=== PATIENT | male | born 1935 | race African-American/Black ===

== ENCOUNTER 2018-05-27 12:17 | Emergency (ER) | payer OTHER ==
[~2018-05-27] VITALS: Ht 160 cm; Wt 78.0 kg
[~2018-05-27 12:17] MED LIST: ACETAMINOPHEN-1 EAC1 PO; AMARYL2 MG PO; ASPIRIN325; CARVEDILOL25 MG; CARVEDILOL25 MG PO; COUMADIN 5 MG TA5 M1 PO; DYAZIDE; FLOMAX0.4 MG PO; FOSAMAX 70 MG T70 MG PO; GLUCOPHAGE500 MG PO; GLUMETZA500; HYDRALAZINE 5050 MG; HYDROCODON-ACE1 EAC7 PO; LASIX 40 MG TAB40 M2 PO; LISINOPRIL20 MG PO; LOTRIMIN30 GM TP; MUCINEX TA600 MG/TA2 PO; NORCO 5-325 TA1 EACH PO; POTASSIUM CHLO10 ME1 PO; POTASSIUM20 PO; PRAVACHOL40 MG; PRAVACHOL80 MG PO; PROTONIX40 M1 PO; SIMVASTATIN80 MG PO; SYMBICORT160 MCG/4. INH; TYLENOL325 MG PO
[2018-05-27] MEDS ORDERED: NORCO 5-325 TA1 EACH PO (13:34)
[2018-05-27 13:47] VITALS: BP 113/70
== END 2018-05-27 13:47 | disposition home or self-care (01) ==
LOC: ER 12:17
DX: M54.2 Cervicalgia (principal); M54.9 Dorsalgia, unspecified; I10 Essential (primary) hypertension; I25.2 Old myocardial infarction; E11.9 Type 2 diabetes mellitus without complications; Z95.810 Presence of automatic (implantable) cardiac defibrillator; Z88.1 Allergy status to other antibiotic agents; V49.49XA Driver injured in collision with other motor vehicles in traffic accident, initial encounter; Y93.89 Activity, other specified; Y92.410 Unspecified street and highway as the place of occurrence of the external cause; Y99.8 Other external cause status

== ENCOUNTER 2018-07-11 23:22 | Emergency (ER) | payer OTHER ==
[~2018-07-11] VITALS: Ht 160 cm; Wt 77.1 kg
[2018-07-12 00:05] LABS: ABSOLUTE NEUTROPHILS 3.4 thou/uL (1.4-8.2); BASOPHILS 0.4 % (0.0-2.0); EOSINOPHILS 2.6 % (0.0-3.0); HEMOGLOBIN 12.9 gm/dL (14.0-18.0); LYMPHOCYTES 22.1 % (24.0-44.0); MCV 94.2 fL (80.0-100.0); MONOCYTES 10.1 % (1.0-8.0); PLATELET COUNT 121 thou/uL (150-400); POLYS 64.8 % (36.0-66.0); RBC 4.03 mil/uL (4.50-6.00); WBC 5.3 thou/uL (4.0-11.0)
[2018-07-12 00:09] LABS: CALCIUM 8.9 mg/dL (8.5-10.1); CREATININE 1.9 mg/dL (0.7-1.3); POTASSIUM 4.3 mmol/L (3.5-5.1)
[2018-07-12 00:17] LABS: APTT 34.3 Seconds (24.5-32.8); INR 2.2; PROTIME 23.1 Seconds (9.3-11.4)
[2018-07-12 00:19] LABS: ALBUMIN 3.5 g/dL (3.4-5.0); MAGNESIUM 1.8 mg/dL (1.8-2.4); TOTAL BILIRUBIN 0.7 mg/dL (<0.1-1.0); TOTAL PROTEIN 6.7 g/dL (6.4-8.2); TROPONIN-I 0.08 ng/mL (<0.06)
[2018-07-12 02:06] VITALS: BP 120/69
--- NOTE | 2018-07-12 09:18 | EKG ---
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1935 Requested By: Benito Stewart Order Number: [id number] MD: Danilo Ortega Measurements Intervals [place] Rate: 94 P: 69 SC: 177 QRS: 129 QRSD: 111 T: 86 QT: 358 QTc: 448 Interpretive Statements Sinus rhythm Anterolateral infarct, age indeterminate Compared to ECG 10/10/2013 22:30:20 no significant change was found Electronically Signed On 07-12-2018 9:18:00 CDT by Danilo Ortega [email or web address] ��������������������������������������������� <ELECTRONICALLY SIGNED> ���������������������������������������� By: Danilo Ortega MD, [facility] ��������������������������������������������� 07/12/18 0918 2343 2343 Danilo Ortega MD, FACC /EPI
== END 2018-07-12 02:08 | disposition home or self-care (01) ==
LOC: ER 23:22
PROVIDERS: Emergency Medicine
DX: I13.0 Hypertensive heart and chronic kidney disease with heart failure and stage 1 through stage 4 chronic kidney disease, or unspecified chronic kidney disease (principal); I50.9 Heart failure, unspecified; E11.22 Type 2 diabetes mellitus with diabetic chronic kidney disease; N18.6 End stage renal disease; I25.10 Atherosclerotic heart disease of native coronary artery without angina pectoris; R79.89 Other specified abnormal findings of blood chemistry; Z79.01 Long term (current) use of anticoagulants; Z88.1 Allergy status to other antibiotic agents

== ENCOUNTER 2019-08-28 16:35 | Inpatient (IN) | payer OTHER ==
[~2019-08-28] VITALS: Ht 160 cm; Wt 76.7 kg
--- NOTE | ~2019-08-28 | HC ---
[facility] [place] [address] CONSULTATION Name: CHARLEY JAUREGUI Room #: 242-P ADM IN M.R.#: [id number] Admission: 08/28/19 Attend Phys: Patrick Obregon MD Discharge: Date of : 37 Report #: [id number] THIS REPORT FOR: cc: Yusuf Samaniego Ronald D. DO Khosla, Parveen K. MD ~ CC: Atilio Samaniego DATE OF SERVICE: 08/29/2019 HISTORY OF PRESENT ILLNESS: This is an 84-year-old male patient on whom a Neurology consultation was requested today for evaluation of his CVA. I reviewed the records and talked to the patient. From the records, it looks like the patient presented to Emergency Room yesterday because the patient was slurring his speech. He was also feeling dizzy and somewhat weak and he was brought to Emergency Room. He was seen by Dr. Stewart, the Emergency Room physician and he consulted with Dr. Shearer, neurologist, who was correctional officer sergeant. His evaluation was very difficult. He has a defibrillator. Therefore, MRI could not be done. CT angio was considered, but his GFR was only 35. The Emergency Room records indicate because of the above factors, the patient's further workup could not be done, but he was given TPA in the Emergency Room. He has no complication from TPA and he thinks his speech has improved and in fact he thinks it is back to the baseline. This patient's records indicate he has atrial fibrillation, but he does not recognize the term. He said he is on Coumadin, but his INR was only 1.1. I do not know when was the last time his INR was checked. REVIEW OF SYSTEMS: Positive for multiple factors. They include hypertension, IL, diabetes. He has a defibrillator. He has a history of congestive heart failure, has a history of hyperlipidemia, ischemic cardiomyopathy, multivessel surgical vascularization. This was his relevant 14-point review of system. He says he does not have any history of stroke in the past. PAST MEDICAL HISTORY: Negative for stroke. FAMILY HISTORY: Unremarkable. SOCIAL HISTORY: He does not smoke or drink any alcohol. PHYSICAL EXAMINATION: The patient's examinations indicates he is alert. He is responsive. He can follow simple commands. His speech looks intact to me. Cranial nerve examination does indicate left hemianopsia. This was noticed in the Emergency Room also. He may be slightly weak on the left side as compared to the right side. His position sense appeared to be intact. Reflexes are [address] [address] CONSULTATION Name: CHARLEY JAUREGUI Room #: 242-P ADM IN M.R.#: [id number] Admission: 08/28/19 Attend Phys: Patrick Obregon MD Discharge: Date of : 37 Report #: [id number] symmetrical. There is no meningeal sign. There is no carotid bruit. There is no thyroid mass. He is reasonably well-developed individual. His blood pressure is 118/75, temperature is 98.2, pulse is 61. Cardiac examinations indicate he has a defibrillator. Respiratory examination shows no respiratory difficulty. His platelet count is somewhat low at 114. IMPRESSION: The patient's clinical presentation is consistent with cerebrovascular accident. It appeared to be mostly in the posterior cerebral artery distribution. It is most likely emboli from the heart because his INR was very low and that is especially true if the patient has atrial fibrillation in the past. I discussed that situation with the patient, but the patient appeared to be in somewhat denial. Multiple things need to be done in this patient and they include: 1. We should try to maintain his blood pressure somewhat high. He is on antihypertensives and that may have to be held if his blood pressure does not come up. 2. Consideration should be given to switching the anticoagulation to something like Eliquis. 3. He has hemianopsia. 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 4. We will see how he does with physical and occupational therapy. He does appear to be somewhat weak on the left side. 5. We will repeat the CT scan in this patient to document CVA because other things like MRI and CT angio cannot be done in this patient because of low GFR and defibrillator, which may be incompatible with MRI. He does need cardiology evaluation both for repeating the echocardiogram and also addressing changing his anticoagulation. I will discuss the patient with the hospitalist today and I have put a call to him and we will discuss that. Thank you very much for this referral and if you have any questions, please feel free to contact me. By: 1100 1126 Josemanuel Kuhn MD /nt
[~2019-08-28 16:35] MED LIST changes: +CIALIS20 MG; +COZAAR 50 MG TA50 MG PO; +DORYX MPC120 MG PO; +FARXIGA5 MG PO; +SPIRONOLACTONE25 MG
[2019-08-28 16:38] VITALS: BP 120/66
[2019-08-28 17:22] LABS: ANION GAP 7 mmol/L (7-16); BUN 28 mg/dL (7-18); CALCIUM 8.8 mg/dL (8.5-10.1); CHLORIDE 101 mmol/L (98-107); CO2 26 mmol/L (21-32); CREATININE 2.2 mg/dL (0.7-1.3); GLUCOSE 119 mg/dL (74-106); POTASSIUM 3.9 mmol/L (3.5-5.1); SODIUM 134 mmol/L (136-145)
[2019-08-28 17:27] LABS: APTT 25.7 Seconds (24.5-32.8); INR 1.1; PROTIME 11.3 Seconds (9.3-11.4)
[2019-08-28 17:32] LABS: ALBUMIN 3.7 g/dL (3.4-5.0); MAGNESIUM 2.3 mg/dL (1.8-2.4); SGOT 20 U/L (15-37); SGPT 19 U/L (30-65); TOTAL BILIRUBIN 0.6 mg/dL (0.2-1.0); TOTAL PROTEIN 7.6 g/dL (6.4-8.2); TROPONIN-I <0.06 ng/mL (<0.06)
[2019-08-28 17:53] LABS: HEMATOCRIT 39.8 % (42.0-52.0); HEMOGLOBIN 13.6 gm/dL (14.0-18.0); MCH 32.8 pg (26.0-34.0); MCHC 34.1 % (28.0-37.0); PLATELET COUNT 128 thou/uL (150-400); RBC 4.14 mil/uL (4.50-6.00); RDW 14.2 % (10.5-14.5); WBC 4.3 thou/uL (4.0-11.0)
[2019-08-28] MEDS ORDERED: COUMADIN 2.5MG2.5 M1 PO (18:07)
[2019-08-28] MEDS ORDERED: PRAVASTATIN SOD80 MG PO (18:08)
[2019-08-28] MEDS ORDERED: FLOMAX0.4 MG PO (18:08)
[2019-08-28] MEDS ORDERED: METFORMIN HCL500 M3 PO (18:08)
[2019-08-28] MEDS ORDERED: FUROSEMIDE 40 M40 MG PO (18:11)
[2019-08-28] MEDS ORDERED: STARLIX60 MG PO (18:12)
[2019-08-28] MEDS ORDERED: ISOSORBIDE DINI30 MG PO (18:12)
[2019-08-28] MEDS ORDERED: KLOR-CON M2020 MEQ PO (18:12)
[2019-08-28 22:59] VITALS: BP 117/69
[2019-08-28 23:37] VITALS: BP 127/78
[2019-08-29] VITALS (20 sets, daily range): BP systolic 94–139; BP diastolic 40–75
--- NOTE | 2019-08-29 01:30 | NUR ---
PATIENT IS A NEW ADMISSION TO THE UNIT. HE ARRIVED VIA CART FROM THE ER AND WAS ABLE TO AMBULATE TO THE BED WITH ASSISTANCE INCIDENT FREE. PATIENT IS FULLY ALERT AND ORIENTED AND ABLE TO PARTICIPATE IN ADMISSION AND CALL APPROPRIATELY FOR NEEDS. NIH PER PROTOCOL WITH PATIENT SCORING AROUND ONE TO TWO DUE TO SLIGHT VISUAL DISTURBANCE. NURSE TO INITIATE PLAN OF CARE AND COMPLETE ADMISSION PROCESS.
[2019-08-29 07:27] LABS: HEMATOCRIT 36.6 % (42.0-52.0); HEMOGLOBIN 12.5 gm/dL (14.0-18.0); MCH 32.9 pg (26.0-34.0); MCHC 34.2 g/dL (28.0-37.0); MCV 96.2 fL (80.0-100.0); RBC 3.8 mil/uL (4.50-6.00); RDW 14.2 % (10.5-14.5); WBC 3.5 thou/uL (4.0-11.0)
[2019-08-29 07:45] LABS: CALCIUM 7.9 mg/dL (8.5-10.1); CREATININE 1.9 mg/dL (0.7-1.3); MAGNESIUM 2.1 mg/dL (1.8-2.4); POTASSIUM 4.4 mmol/L (3.5-5.1)
--- NOTE | 2019-08-29 07:59 | NUR ---
ASSUMED CARE AT 0700, ASSESSMENT AND VITAL SIGNS COMPLETED PER ICU PROTOCOL. DAUGHTER, ERIN, CALLED RN TO GET UPDATE, SECURITY CODE PROVIDED. RN PROVIDED UPDATE, PLAN OF CARE DISCUSSED.
--- NOTE | 2019-08-29 08:47 | EKG ---
[facility] [place] [address] ELECTROCARDIOGRAM REPORT Name: CHARLEY JAUREGUI Room #: 242-P ADM IN M.R.#: [id number] Admission: 08/28/19 Attend Phys: Patrick Obregon MD Discharge: Date of : 37 Report #: [id number] THIS REPORT FOR: cc: Yusuf Samaniego Ronald D. DO Lundgren, Craig H. 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
--- NOTE | 2019-08-29 09:50 | NUR ---
chart review, consult for dcp and if pt able to care for self at home. cm called pt in room, cm spoke with him via phone call, intro to cm and dcp. " i am in the hospital right know, and dr hawk here, have to talk later"/jaxson. noted per chart, pt independent prior to hospital, h/o stroke, has pacemaker. his full service supervisor is at [facility] dr jamison. will cont following as needed for dc needs.
--- NOTE | 2019-08-29 15:20 | 2DMMODE ---
[facility] [place] [address] 2 D/M-MODE ECHOCARDIOGRAM Name: CHARLEY JAUREGUI Room #: 242-P ADM IN M.R.#: [id number] Admission: 08/28/19 Attend Phys: Patrick Obregon MD Discharge: Date of : 37 Report #: [id number] THIS REPORT FOR: cc: Yusuf Samaniego Ronald D. DO Lammoglia, Francisco J. MD ~ APPROVED REPORT Study performed: 08/29/2019 13:39:42 EXAM: Comprehensive 2D, Doppler, and color-flow Echocardiogram Patient Location: ICU Room #: 242 Status: routine BSA: 1.77 HR: 60 bpm BP: 103/58 mmHg Rhythm: NSR Other Information Study Quality: Good Indications ICD: CVA/TIA Diabetes Atrial Fibrillation Cardiomyopathy Hypertension/HDD Echo Enhancing Agent Indication: Rule out Shunt Agent(s) / Amount(s) Used: Agitated Saline 7 cc 2D Dimensions IVSd: 12.30 (7-11mm) LVOT Diam: 21.21 (18-24mm) LVDd: 52.10 mm PWd: 13.27 (7-11mm) Ascending Ao: 26.77 (22-36mm) LVDs: 41.84 (25-40mm) Aortic Root: 33.38 mm IVC: 17.00 mm Aortic Valve AoV Peak Ishmael.: 1.37 m/s AO Peak Gr.: 7.56 mmHg LVOT Max P.[address] [facility] [address] [place] [address] 2 D/M-MODE ECHOCARDIOGRAM Name: CHARLEY JAUREGUI Room #: 242-P ADM IN M.R.#: [id number] Admission: 08/28/19 Attend Phys: Patrick Obregon MD Discharge: Date of : 37 Report #: [id number] LVOT Max V: 0.84 m/s ROSALIND Vmax: 2.15 cm2 Mitral Valve E/A Ratio: 0.6 MV Decel. Time: 317.68 ms MV E Max Ishmael.: 0.53 m/s MV A Ishmael.: 0.96 m/s MV PHT: 92.13 ms IVRT: 129.18 ms Pulmonary Valve PV Peak Ishmael.: 0.87 m/s PV Peak Gr.: 3.10 mmHg Pulmonary Vein P Vein S: 0.45 m/s P Vein A: 0.21 m/s P Vein D: 0.30 m/s P Vein A Dur.: 101.5 msec P Vein S/D Ratio: 1.50 Tricuspid Valve TR Peak Ishmael.: 2.22 m/s TR Peak Gr.: 19.76 mmHg PA Pressure: 30.00 mmHg Left Ventricle The left ventricle is normal size. There is global hypokinesis of the left ventricle. Mild concentric left ventricular hypertrophy. Left ventricular ejection fraction is moderate to severely decreased. LVEF is 25-30%. Grade I - abnormal relaxation pattern. Right Ventricle The right ventricle is normal size. The right ventricular systolic function is normal. Device lead is present in the right ventricle. Atria Left atrium is dilated. Interatrial septum is intact without evidence of ASD or PFO. Right atrium is dilated. Device lead is present in the right atrium. Aortic Valve The aortic valve is normal in structure. The Aortic valve is sclerotic. Mild aortic regurgitation. There is no aortic valvular stenosis. Mitral Valve The mitral valve is normal in structure. Mild mitral regurgitation. [facility] [address] [place] [address] 2 D/M-MODE ECHOCARDIOGRAM Name: CHARLEY JAUREGUI Room #: 242-P ADM IN M.R.#: [id number] Admission: 08/28/19 Attend Phys: Patrick Obregon MD Discharge: Date of : 37 Report #: [id number] No evidence of mitral valve stenosis. Tricuspid Valve The tricuspid valve is normal in structure. There is mild tricuspid regurgitation. Estimated PAP 30 mmHg. There is mild pulmonary hypertension. Pulmonic Valve The pulmonary valve is normal in structure. There is no pulmonic valvular regurgitation. Great Vessels The aortic root is normal in size. IVC is normal in size and collapses <50% with inspiration. Pericardium There is no pericardial effusion. <Conclusion> The left ventricle is normal size. LVEF is 25-30%. There is global hypokinesis of the left ventricle. The right ventricle is normal size. Device lead is present in the right ventricle. Left atrium is dilated. Right atrium is dilated. Device lead is present in the right atrium. Interatrial septum is intact without evidence of ASD or PFO. The aortic valve is normal in structure. The Aortic valve is sclerotic. Mild aortic regurgitation. The mitral valve is normal in structure. Mild mitral regurgitation. The tricuspid valve is normal in structure. There is mild tricuspid regurgitation. Estimated PAP 30 mmHg. There is mild pulmonary hypertension. The pulmonary valve is normal in structure. There is no pericardial effusion. <ELECTRONICALLY SIGNED> By: Alexey Adams MD 08/29/19 1519 1519 1519 Alexey Adams MD /INF
--- NOTE | 2019-08-29 22:21 | NUR ---
PT BACK TO BED FROM CHAIR. GAIT STEADY. DENIES ANY PAIN, NUMBNESS OR TINGLING. SPEECH CLEAR, FACE SYMMETRICAL. AND DID NOT NOTED LT PERIPHERAL NEGLECT. NIH 0. PT DENIES VISION ISSUES. PROGRESSING TOWARD GOALS. CONT PLAN OF CARE
[2019-08-29 23:23] LABS: URINE BILIRUBIN NEGATIVE (Negative); URINE BLOOD NEGATIVE (Negative); URINE CLARITY CLEAR; URINE COLOR YELLOW; URINE GLUCOSE-RANDOM* NEGATIVE (Negative); URINE KETONES TRACE (Negative); URINE LEUKOCYTES-REFLEX NEGATIVE (Negative); URINE NITRITE-REFLEX NEGATIVE (Negative); URINE PROTEIN (DIPSTICK) NEGATIVE (Negative); URINE UROBILINOGEN 0.2 E.U./dl (0.2-1.0)
[2019-08-29 23:35] LABS: BARBITURATES Negative (Negative); BENZODIAZEPINES Negative (Negative); COCAINE Negative (Negative); METHADONE Negative (Negative); OPIATES Negative (Negative); PCP Negative (Negative)
--- NOTE | 2019-08-29 23:35 | NUR ---
TRANSFER PT TO ROOM 207 FROM ICU. PT STATED HE WILL NOTIFY FAMILY MEMBERS OF TRANSFER IN AM.
[2019-08-29 23:44] LABS: AMP/METHAMP Negative (Negative)
[2019-08-30 04:08] VITALS: BP 104/67
--- NOTE | 2019-08-30 05:14 | NUR ---
PT ARRIVED FROM ICU THIS SHIFT. A[facility] NEEDS OF GOING HOME TOMORROW. DENIES PAIN. 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 URINAL AT BEDSIDE. FALL PREC IN PLACE AND CALL LIGHT IN REACH WILL CONT TO MONITOR.
[2019-08-30 08:00] VITALS: BP 126/71
[2019-08-30 11:50] VITALS: BP 124/54
[2019-08-30 16:00] VITALS: BP 115/57
--- NOTE | 2019-08-30 16:42 | NUR ---
ASSESSMENT DOCUMENTED, NIHS 0, AND VSS. HE DEINIES ANY PAIN OR DISCOMFORT AND ASKING TO GO HOME. PROGRESSING TOWARDS GOALS, AND WILL CONTINUE TO MONITOR PATIENT.
[2019-08-30 20:12] VITALS: BP 108/64
[2019-08-31 04:47] VITALS: BP 106/52
--- NOTE | 2019-08-31 05:07 | NUR ---
ASSESSMENTS CHARTED, MEDS CHARTED GIVEN. PATIENT RESTING IN BED DURING SHIFT. SR ON TELEMETRY, LUNGS ARE CLEAR, ACCUCHECK AT HS WAS 154, 3 UNITS OF LISPRO GIVEN. PATIENT UP TO BATHROOM WITH STANDBY ASSIST. DENIED PAIN. FALL PRECAUTIONS IN PLACE DURING SHIFT. PLAN OF CARE IS TO HAVE CONSULT WITH ONCOLOGY THEN POSSIBLY GO HOME.
[2019-08-31 05:11] LABS: % SATURATION 26 % (20-39); IRON 46 ug/dL (65-175); TIBC 179 ug/dL (250-450)
[2019-08-31 05:36] LABS: FOLIC ACID 8.3 ng/mL (8.6-58.9)
[2019-08-31 08:00] VITALS: BP 135/59
[2019-08-31] MEDS ORDERED: B-12500 MCG PO (12:52)
[2019-08-31] MEDS ORDERED: FOLIC ACID0.4 MG PO (12:52)
[2019-08-31] MEDS ORDERED: LASIX 20 MG TAB20 MG PO (12:52)
[2019-08-31] MEDS ORDERED: XARELTO15 MG PO (12:52)
[2019-08-31 13:17] VITALS: BP 135/59
[2019-09-01 05:07] LABS: HEMOGLOBIN 12.1 g/dL (13.0-17.7)
[2019-09-01 13:08] LABS: ANA INTERPRETATION Negative (Negative)
[2019-09-01 22:06] LABS: SYPHILIS AB Non Reactive (Non Reactive)
--- NOTE | 2019-09-04 19:12 | HC ---
[facility] [place] [address] CONSULTATION Name: CHARLEY JAUREGUI Room #: 207-P [facility] IN M.R.#: [id number] Admission: 08/28/19 Attend Phys: Patrick Obregon MD Discharge: 08/31/19 Date of : 37 Report #: [id number] THIS REPORT FOR: cc: Yusuf Samaniego Ronald D. DO McKittrick, Richard James MD ~ CC: Atilio Samaniego DO REQUESTING PHYSICIAN: Patrick Obregon MD HISTORY OF PRESENT ILLNESS: The patient is a very pleasant 84-year-old male who came to the Emergency Room on day of admit with slurring of speech and dizziness. He is a patient of Dr. Lemon. The patient is recovering very well. He had missed several days of anticoagulation, which might have contributed to this. We will defer workup to them. The question for me is whether he has cytopenia that might interfere with plans for anticoagulation. The patient's recent hemoglobin was 12.5, which is stable. White count is 3.5 with a recent ANC of 2000. Note that in 2013, his white count was 4.1 and in 2009 it was 3.6, platelets were 114; in 2013 they were 139 and in 2010 they were 132. Differential is nonacute. Iron and B12 lab panels appear to be normal. Folate was slightly low at 8.3, would suggest supplementation. REVIEW OF SYSTEMS: The patient denies any fevers or chills. He thinks he is functioning much better. He has not been aware of any bleeding difficulties when his pacemaker was placed in May with other activities. He is not aware of any family history of bleeding disorders. PAST MEDICAL HISTORY: Notable for the stroke and several in the past. The pacemaker in situ. Chronic kidney disease, hypertension, diabetes type 2, hyperlipidemia, BPH. FAMILY HISTORY: No one with any bleeding or blood disorders that he is aware of. 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 [facility] [address] [place] [address] CONSULTATION Name: CHARLEY JAUREGUI Room #: 207-P [facility] IN [place].#: [id number] Admission: 08/28/19 Attend Phys: Patrick Obregon MD Discharge: 08/31/19 Date of : 37 Report #: [id number] MEDICATIONS: At this time in the hospital currently include rivaroxaban 15 mg daily, began today; furosemide 20 mg daily; isosorbide mononitrate 30 mg daily; losartan 50 mg daily; tamsulosin 0.4 mg daily; insulin on a sliding scale; atorvastatin calcium 40 mg daily; Tylenol p.r.n.; Zofran p.r.n.; enteric-coated aspirin was done one time. PHYSICAL EXAMINATION: VITAL SIGNS: The patient's height is 5 feet 3 inches, which is 160.02 cm. Weight is 169 pounds or 76.7 kilograms. Blood pressure is 106/52, O2 sat 100%, respirations 18, pulse 60, afebrile at 98.3. MOOD: The patient is alert and conversant and pleasant. NEUROLOGIC: Speech and thought pattern appear to be normal. The patient is eating off a hospital tray and appears to have a good movement. LUNGS: Appear to be clear without significant rhonchi or rales. There is symmetric and unlabored expansion and respiration. HEART: Regular rate. LYMPHATICS: No enlarged lymph nodes in the supraclavicular, cervical, axillary region. ABDOMEN: Slightly obese. No masses. Chest has pacemaker in place. EXTREMITIES: Without significant edema. LABORATORY DATA: Labs reviewed as mentioned above and also note the patient's creatinine is about 1.9. Liver functions have been normal. Differential on the white count has been normal. Peripheral smear is pending. ASSESSMENT AND PLAN: 1. 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 At this time, I do not think other interventions such as a bone marrow biopsy is warranted. Also, his platelets in this level and with recent pacemaker placed without difficulty, I think Xarelto is a very reasonable choice for anticoagulation given his recent stroke. Continue monitoring creatinine periodically. No bone marrow at this time. 2. Recent stroke. Agree with anticoagulation. 3. Chronic kidney disease with creatinine of 1.9. Continue monitoring and medication adjustment. 4. Diabetes type 2, diet and agents. 5. Hypertension, meds. 6. Hyperlipidemia, statins. 7. Benign prostatic hypertrophy, tamsulosin. We will be available if further questions arise. <ELECTRONICALLY SIGNED> By: Harry Turner MD 09/04/192 0840 0913 Harry Turner MD /nt
== END 2019-08-31 13:41 | disposition home health service (06) | DRG 62 ==
LOC: ER 16:35 → ICU 18:38 → EROBS 18:38 → ICU 23:00 → 2N 08-29 23:10
PROVIDERS: Emergency Medicine; Internal Medicine Hematology & Oncology; Psychiatry & Neurology Neuromuscular Medicine; ADMIT Internal Medicine; ATTEND Internal Medicine
DX: I63.9 Cerebral infarction, unspecified (principal); I50.22 Chronic systolic (congestive) heart failure; I13.0 Hypertensive heart and chronic kidney disease with heart failure and stage 1 through stage 4 chronic kidney disease, or unspecified chronic kidney disease; D61.818 Other pancytopenia; I48.20 Chronic atrial fibrillation, unspecified; N18.3 Chronic kidney disease, stage 3 (moderate); E11.22 Type 2 diabetes mellitus with diabetic chronic kidney disease; I25.5 Ischemic cardiomyopathy; N40.0 Benign prostatic hyperplasia without lower urinary tract symptoms; E78.5 Hyperlipidemia, unspecified; I48.0 Paroxysmal atrial fibrillation; G47.00 Insomnia, unspecified; K59.00 Constipation, unspecified; E55.9 Vitamin D deficiency, unspecified; I25.10 Atherosclerotic heart disease of native coronary artery without angina pectoris; Z95.1 Presence of aortocoronary bypass graft; Z88.8 Allergy status to other drugs, medicaments and biological substances; I25.2 Old myocardial infarction; Z83.3 Family history of diabetes mellitus; Z82.49 Family history of ischemic heart disease and other diseases of the circulatory system; Z95.810 Presence of automatic (implantable) cardiac defibrillator; Z87.891 Personal history of nicotine dependence; Z79.899 Other long term (current) drug therapy
CPT/HCPCS: 10078; 10081

== ENCOUNTER 2020-03-26 20:46 | Inpatient (IN) | payer OTHER ==
[~2020-03-26] VITALS: Ht 154.9 cm; Wt 71.5 kg
[2020-03-26] VITALS (8 sets, daily range): BP systolic 108–150; BP diastolic 34–93
--- NOTE | ~2020-03-26 | HC ---
[facility] [place] [address] CONSULTATION Name: CHARLEY JAUREGUI Room #: 250-P ADM IN M.R.#: [id number] Admission: 03/26/20 Attend Phys: Cecilia Vides MD Discharge: Date of : 37 Report #: [id number] THIS REPORT FOR: cc: Yusuf Samaniego Ronald D. DO Smithson, David G. MD ~ DATE OF SERVICE: 03/27/2020 HISTORY OF PRESENT ILLNESS: The patient is an 84-year-old -Palestinian male admitted with mental status changes, driving erratically, veering to the left. CT scan showed an old right parietal infarct. He is not a candidate for TPA. He was noted to have left sided neglect and left sided hemisensory deficits. He had a seizure, new onset. In the Emergency Room. He was given Keppra. He was seen by Neurology. He is not a candidate for an MRI as he has a pacemaker, which is apparently not compatible. He has chronic kidney disease. We planned to go through with an MRA. Nephrology was contacted as well as per Neurology. The patient is also undergoing an EEG. He is currently in the intensive care unit. We are seeing him in rehabilitation medicine consultation. PAST MEDICAL HISTORY: Includes hypertension, elevated lipids, diabetes mellitus type 2, CHF, cardiomyopathy, coronary artery disease with prior coronary artery bypass grafting, cardiac pacemaker with AICD, history of atrial fibrillation. MEDICATIONS: Please see the full medication listing. ALLERGIES: No known drug allergies are noted. SOCIAL HISTORY: He lives with 2 daughters and a niece, 6 steps. One daughter works. He did not utilize gait aids. He was driving as noted above. This is a house. REVIEW OF SYSTEMS: No current complaints of chest pain, shortness of breath or abdominal discomfort. PHYSICAL EXAMINATION: GENERAL: An 84-year-old -Palestinian male in no obvious distress. VITAL SIGNS: Last recorded temperature 97.7, pulse 94, respirations 21, blood pressure 133/83. NEUROLOGIC: He is alert, pleasant. HEENT: Reveals depressed left nasolabial fold. He has definite left visual field neglect to confrontation. He has left sided weakness, upper and lower extremity are graded at a 3+/5 with decreased coordination of that left upper extremity. He has decreased heavy sensation to light touch left upper and left lower extremity. DTRs were 1+. No clonus at the ankle. He is needing min assist with supine to sit. While sitting at the edge of the bed, he tends to [facility] [address] [place] [address] CONSULTATION Name: CHARLEY JAUREGUI Room #: 250-P [facility] IN [facility].#: [id number] Admission: 03/26/20 Attend Phys: Cecilia Vides MD Discharge: Date of : 37 Report #: [id number] lean to the right. ASSESSMENT: An 84-year-old -Palestinian male with the following problem list: 1. Cerebrovascular accident. Appears clinically to be right middle cerebral artery distribution, although ____ to do an MRI scan. 2. 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 3. New onset seizure. To undergo EEG. He is on Keppra. 4. History of pacemaker with automatic implantable cardioverter-defibrillator. 5. Coronary artery bypass grafting. 6. History of atrial fibrillation. 7. Diabetes mellitus type 2. 8. Congestive heart failure. 9. Cardiomyopathy. 10. Coronary artery disease. 11. Elevated lipids. 12. Hypertension. PLAN: Therapies are underway. He is currently being closely monitored in the Intensive Care Unit. He certainly may be a candidate for an acute inpatient rehabilitation stay as he further medically stabilizes. We will be glad to follow along with you. By: 1010 1230 Marco Hensley MD /nt
[~2020-03-26 20:46] MED LIST changes: +B-12500 MCG PO; +COUMADIN 2.5MG2.5 M1 PO; +FOLIC ACID0.4 MG PO; +FUROSEMIDE 40 M40 MG PO; +ISOSORBIDE DINI30 MG PO; +KLOR-CON M2020 MEQ PO; +LASIX 20 MG TAB20 MG PO; +METFORMIN HCL500 M3 PO; +PRAVASTATIN SOD80 MG PO; +STARLIX60 MG PO; +XARELTO15 MG PO
[2020-03-26 21:19] LABS: ABSOLUTE NEUTROPHILS 2.4 thou/uL (1.4-8.2); BASOPHILS 0.7 % (0.0-2.0); EOSINOPHILS 2.8 % (0.0-3.0); HEMATOCRIT 40.9 % (42.0-52.0); HEMOGLOBIN 13.5 gm/dL (14.0-18.0); LYMPHOCYTES 30.2 % (24.0-44.0); MCH 31.6 pg (26.0-34.0); MCHC 32.9 g/dL (28.0-37.0); MCV 96.1 fL (80.0-100.0); MONOCYTES 11.7 % (1.0-8.0); PLATELET COUNT 135 thou/uL (150-400); POLYS 54.6 % (36.0-66.0); RBC 4.26 mil/uL (4.50-6.00); RDW 14.9 % (10.5-14.5); WBC 4.4 thou/uL (4.0-11.0)
[2020-03-26 21:26] LABS: ANION GAP 10 mmol/L (7-16); BUN 19 mg/dL (7-18); CALCIUM 9.1 mg/dL (8.5-10.1); CHLORIDE 101 mmol/L (98-107); CO2 26 mmol/L (21-32); CREATININE 1.7 mg/dL (0.7-1.3); GLUCOSE 118 mg/dL (74-106); POTASSIUM 3.8 mmol/L (3.5-5.1); SODIUM 137 mmol/L (136-145)
[2020-03-26 21:35] LABS: APTT 39.1 Seconds (24.5-32.8); INR 1.5; PROTIME 16.7 Seconds (9.3-11.4)
[2020-03-26 21:36] LABS: ALBUMIN 3.8 g/dL (3.4-5.0); SGOT 27 U/L (15-37); SGPT 38 U/L (16-63); TOTAL BILIRUBIN 1.3 mg/dL (0.2-1.0); TOTAL PROTEIN 7.4 g/dL (6.4-8.2); TROPONIN-I <0.06 ng/mL (<0.06)
[2020-03-27] VITALS (31 sets, daily range): BP systolic 103–1174; BP diastolic 31–97
--- NOTE | 2020-03-27 00:25 | NUR ---
PT'S PACEMAKER IS NOT MRI SAFE.
--- NOTE | 2020-03-27 05:19 | NUR ---
PT CAME UP FROM ER AT 0430AM TODAY. ER NURSE STATED GIVING PT SOME ATIVAN PRIOR TO WHEELING HIM DOWN TO ICU. PT APPEARED LETHARGIC, EYES CLOSED AND ONLY WITHDRAWS TO PAINFUL STIMULI AND FACIAL GRIMACE. RN ATTEMPTED TO AROUSE PT TO HAVE A CONVERSATION AND FILL OUT ADMISSION DOCUMENTATION AND TO ALSO CARRY OUT INITIAL NIH ASSESSMENT BUT PT UNAROUABLE. PT CURRENTLLY SLEEPING NOW, SEIZURE PRECAUTIONS IN PLACE. VSS. WILL CONTINUE TO MONITOR AND WILL PASS ON TO DAY RN TO COMPLETE ADMISSION CHECKLIST ONCE PT IS FULLY AWAKE AND ABLE TO CONVERSE.
[2020-03-27 06:44] LABS: CHOLESTEROL 107 mg/dL (<200); HDL CHOLESTEROL 48 mg/dL (>40); LDL CHOLESTEROL 49 mg/dL (<100); TC:HDL 2.2 Ratio (Not establshd); TRIGLYCERIDE 53 mg/dL (<150); VLDL 11 mg/dL (<40)
[2020-03-27 06:48] LABS: SERUM ASSESSMENT Clear
--- NOTE | 2020-03-27 07:05 | EKG ---
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
--- NOTE | 2020-03-27 07:28 | NUR ---
ASSUMMED CARE OF THIS PATIENT FROM THE NIGHT NURSE SAMI WARE. PATIENT REMAINS OBTUNDANT AND UNABLE TO PARTICIPATE WITH THE STROKE SCALE AT THIS TIME, ATIVAN GIVEN PRIOR TO ADMISSION.
--- NOTE | 2020-03-27 08:15 | NUR ---
SPOKE WITH DAUGHTER FLORIN, AND UPDATED HER ON HER FATHER'S STATUS. BEDSIDE CARDIAC ECHO JUST COMPLETED. PATIENT IS MORE AWAKE AND ABLE TO PARTICIPATE IN STTOKE SCALE EVALUATION. NEGLECTION OF LEFT SIDE OF PICTURE PAGE.
--- NOTE | 2020-03-27 09:02 | 2DMMODE ---
[facility] [place] [address] [place] [address] 2 D/M-MODE ECHOCARDIOGRAM Name: CHARLEY JAUREGUI Room #: 250-P ADM IN M.R.#: [id number] Admission: 03/26/20 Attend Phys: Cecilia Vides MD Discharge: Date of : 39 Report #: [id number] THIS REPORT FOR: cc: Yusuf Samaniego Ronald D. DO Santiago, Patrick MD [facility] ~ APPROVED REPORT Study performed: 03/27/2020 08:07:24 EXAM: Comprehensive 2D, Doppler, and color-flow Echocardiogram Patient Location: ICU Room #: 250 Status: routine BSA: 1.76 HR: 81 bpm BP: 133/83 mmHg Rhythm: NSR Other Information Study Quality: Adequate Technically limited study due to no patient cooperation. Indications Stroke. Hx: CVA, OK, CABG, CHF, ISCM, AICD, Afib, HTN, HLP, DM. 2D Dimensions RVDd: 39.32 mm IVSd: 12.00 (7-11mm) LVOT Diam: 21.00 (18-24mm) LVDd: 60.00 mm PWd: 12.03 (7-11mm) Ascending Ao: 33.00 (22-36mm) LVDs: 49.00 (25-40mm) Left Atrium: 35.00 (27-40mm) Aortic Root: 35.00 mm Volumes Left Atrial Volume (Systole) Single Plane 4CH: 42.77 mL Single Plane 2CH: 54.92 mL LA ESV Index: 29.00 mL/m2 Aortic Valve AoV Peak Ishmael.: 1.33 m/s [facility] [address] [place] [address] 2 D/M-MODE ECHOCARDIOGRAM Name: CHARLEY JAUREGUI Room #: 250-P [facility] IN .R.#: [id number] Admission: 03/26/20 Attend Phys: Holly Cordoba Discharge: Date of : 39 Report #: [id number] AO Peak Gr.: 7.08 mmHg LVOT Max P.05 mmHg LVOT Max V: 0.72 m/s ROSALIND Vmax: 1.81 cm2 Mitral Valve E/A Ratio: 0.8 MV Decel. Time: 93.43 ms MV E Max Ishmael.: 0.64 m/s MV A Ishmael.: 0.84 m/s MV PHT: 27.09 ms IVRT: 131.49 ms Pulmonary Valve PV Peak Ishmael.: 0.81 m/s PV Peak Gr.: 2.63 mmHg Pulmonary Vein P Vein S: 0.60 m/s P Vein D: 0.51 m/s P Vein S/D Ratio: 1.18 Tricuspid Valve TR Peak Ishmael.: 2.69 m/s RAP Estimate: 5.00 mmHg TR Peak Gr.: 29.03 mmHg PA Pressure: 34.00 mmHg Left Ventricle Left ventricle is mildly dilated. Mild concentric left ventricular hypertrophy. Left ventricular systolic function is mild to moderately decreased. LVEF is 25%. Mild diastolic dysfunction is present (impaired relaxation pattern). Right Ventricle The right ventricle is normal size. Right ventricle is hypokinetic. Device lead is present in the right ventricle. Atria The left atrium size is normal. The right atrium size is normal. Aortic Valve Aortic valve is trileaflet. Leaflets are mildly calcified. Mild aortic regurgitation. There is no aortic valvular stenosis. Mitral Valve The mitral valve is normal in structure. Mild mitral regurgitation. [facility] [address] [address] 2 D/M-MODE ECHOCARDIOGRAM Name: CHARLEY JAUREGUI Room #: 250-P ADM IN M.R.#: [id number] Admission: 03/26/20 Attend Phys: Holly Cordoba Discharge: Date of : 39 Report #: [id number] Tricuspid Valve The tricuspid valve is normal in structure. Mild to moderate tricuspid regurgitation. Estimated PAP is 35mmHg. Pulmonic Valve The pulmonary valve is normal in structure. There is no pulmonic valvular regurgitation. Great Vessels The aortic root is normal in size. The ascending aorta is normal in size. IVC is normal in size and collapses >50% with inspiration. Pericardium There is no pericardial effusion. <Conclusion> Left ventricle mildly dilated, mild LVH Global hypokinesis ejection fraction 25% Normal right ventricular size with mild hypokinesis Normal atrial size Color-flow Doppler study was performed of the aortic/mitral/tricuspid/pulmonary valve Mild aortic/mitral valve insufficiency Moderate tricuspid valve insufficiency Pulmonary artery systolic pressure estimated 35 mmHg Linear density in the RV compatible with pacer wire No pericardial effusion <ELECTRONICALLY SIGNED> By: Tremayne Yee MD, FACC 03/27/20901 1 1 Tremayne Yee MD, FACC /INF
--- NOTE | 2020-03-27 10:15 | NUR ---
PT IN TO SEE PATIENT AND NOW BEDSIDE EEG IN PROGRESS. FLORIN CALLED IN AGAIN AND UPDATED ON THE PATIENT'S STATUS.
--- NOTE | 2020-03-27 12:30 | NUR ---
SPOKE WITH DAUGHTER ERIN AND UPDATED HER ON THE PATIENT'S STATUS. BEDSIDE SWALLOW STATUS INITIATED.
--- NOTE | 2020-03-27 14:13 | NUR ---
SPOKE WITH DAUGHTER ERIN AND PATIENT IS MORE AWAKE AND PARTICIPATING IN CARE. DR PATEL IN TO EXAMINE PATIENT.
--- NOTE | 2020-03-27 16:32 | NUR ---
84 year old male presented to the ED with complaints of confusion on 03-26-20. Daughter reports that patient's driving was taking "wide turns" and drifting to his left. Daughter informed ED MD also states that she does not think that he is comprehending things like he normally does. 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 Neuro discussing plan with daughters and has also called in nephrology. Daughter Ekaterina at [phone] and other daughter Joanna [phone]. CM spoke with gema Tobar at [phone] who said that Joanna is the main contact. I then contacted daughter Joanna [phone] and re-introduced the role of CM as patient last seen by CM on 08-29-2019 where he was living at home with 2 daughters when discharged on 08-31-2019. CM will follow discharge needs as medical plan of care continues.
[2020-03-27] MEDS ORDERED: PIOGLITAZONE15 MG (19:37)
--- NOTE | 2020-03-27 19:39 | NUR ---
PATIENT PROGRESSING SL TOWARDS OUTCOME GOALS EVIDENT BY ABLE TO EAT WITHOUT COUGHING. CONTINUES TO SCOOT SELF DOWN IN THE BED. NIH STROKE SCALE 4-5. LEFT TOOL CARRIER IS SL WEAKER THAN RIGHT.
[2020-03-27 19:54] LABS: CALCIUM 8.5 mg/dL (8.5-10.1); CREATININE 1.8 mg/dL (0.7-1.3); POTASSIUM 3.6 mmol/L (3.5-5.1)
[2020-03-28] VITALS (21 sets, daily range): BP systolic 100–147; BP diastolic 57–95
[2020-03-28 00:05] LABS: GLYCOHEMOGLOBIN (HGB A1C) 6.7 % (4.8-5.6)
[2020-03-28 04:31] LABS: CALCIUM 8.4 mg/dL (8.5-10.1); CREATININE 1.6 mg/dL (0.7-1.3); PHOSPHORUS 3.7 mg/dL (2.5-4.9); POTASSIUM 3.8 mmol/L (3.5-5.1)
--- NOTE | 2020-03-28 13:00 | NUR ---
DR. ADRIAN CALLED, AGITATION. HALDOL GIVEN. NO RESULTS. PT SHOUTING CRAWLING OUT OF CHAIR. STATES THAT NURSE KEPT HIM UP ALL N IGHT, JUST KEEPS REPEATING HIMSELF OVER AND OVER. APPEARS TO HAVE NO SHORT TERM MEMORY. NOT EASILY REDIRECTED. DR ADRIAN CALLED BACK AT 1545 SPOKE WITH PT DAUGHTER. PT DAUGHTER CONCERNED PT NOT TRACKING WELL AND LOOPING HIS CONVERSATION. HALDOL GIVEN AGAIN WITH SLIGHT BETTER RESULT. PT SLEPT FOR ABOUT [address] ADRIAN HERE. PT SEAMS CALMER NOW BUT SHORTLY AFTER MD LEFT PT PULLED OUT SL AND ALL LEADS. PT NAKED ON THE CHAIR, ATTEMPING TO GET UP. STATES WHERE ARE MY CLOTHS. IM LEAVING ETC. GETTING MORE AND MORE HOSTILE WITH THIS RN. ATIVAN 1MG SIVP GIVEN. PT FELL ASPEEP FOR A FEW MINUTES. AN HOUR LATER HE WAS BACK TO THE SAME BEHAVIOR GETTING MORE AND MORE BELLIGERANT. TRYING TO GET OUT OF CHAIR. PULLING LEADS ETC. ATIVAN GIVEN AGAIN WITH GOOD RESULTS. CALLED DR. ADRIAN 1800 TO STATE SECOND DOSE OF ATIVAN HAD BEEN GIVEN. VSS. PT SEDATED. NO NEW ORDERS.
--- NOTE | 2020-03-28 18:36 | HC ---
[facility] [place] [address] [place] [address] CONSULTATION Name: CHARLEY JAUREGUI Room #: 250-P ADM IN M.R.#: [id number] Admission: 03/26/20 Attend Phys: Armando Langford MD Discharge: Date of : 37 Report #: [id number] THIS REPORT FOR: cc: Yusuf Samaniego Ronald D. DO Khosla, Parveen K. MD ~ DATE OF SERVICE: 03/26/2020 HISTORY OF PRESENT ILLNESS: This is an 84-year-old male patient whom I got first call around 11:20 today from the nurses in the Emergency Room. They indicated that the patient was here with stroke-like symptoms and altered mental status. I was going to be consulted in the morning, but then they called me today because his symptoms were worse or more findings were noticed. I came and saw the patient and since then I had numerous conversations with the patient's 2 daughters to get the history and also to the patient himself. I talked to the Emergency Room nurse multiple times and I talked to the nurse practitioner, Daniella Bunch, multiple times. I also reviewed the prior extensive notes on this patient including the note from the last year when I saw this patient. The way I understand is that this patient has a defibrillator and a pacemaker. The patient was started on anticoagulation after his stroke in the middle of last year. I talked to him multiple times, he does not give a good history, that whether he was taking his Xarelto on a regular basis or not. He just would not give any history in that regard. That makes it pretty difficult. Daughters do not know. They said they are trying to find out, they cannot be certain, but they think he may have been taking, that is the best history I can get. They said he was fine until about 7 and then he started becoming confused. He is cognitively intact, but he cannot do simple things like taking his mask off. He is not able to drive. His left side has become weaker, but he has difficulty doing things with the left side. This onset was around 7 according to them. Prior to that, he was fine. Then, visual problems were noticed by Emergency Room physician. It looks like he may have had a gaze preference and there was question of some hemianopsia which was noticed at one time. He also has a new left-sided swelling which is also being worked up and which is also concerning. Family thinks left-sided weakness and sensory symptoms are new and the prior symptoms have resolved. Because of multiple things need to be done, history taking and exam was limited, but carried out multiple times. He has multiple problems. His creatinine is high at 1.7, but actually it is better than when he was here last time. That time, his creatinine was actually 2.2. He also has very low ejection fraction, so he is predisposed to congestive heart failure and it is limited how much fluid he can get. All of it makes the management very difficult as I will summarize below. His history was limited because of the [facility] [address] [place] [address] CONSULTATION Name: CHARLEY JAUREGUI Room #: 250-P ADM IN M.R.#: [id number] Admission: 03/26/20 Attend Phys: Armando Langford MD Discharge: Date of : 37 Report #: [id number] time constraint. PAST MEDICAL HISTORY: Positive for documented CVA and he is supposed to be on Xarelto, although there is some feeling that he was taking Xarelto, but his compliance cannot be ascertained. SOCIAL HISTORY: He has two family members here who identified themselves as daughters and I talked to them in detail. PHYSICAL EXAMINATION: His examination indicate he is alert. He is responsive. He can tell me what month it is. He can tell me what hospital he is in, but his visual spatial problem is pretty pronounced on the left side. I tried to do the visual field examination on him. I am not certain, but he does appear to have a visual field deficit on the left side. He moves his eyes slowly, but most of the time he can move it in a different direction, but previously he was noticed to have gaze preference. He is weak on the left side. When I do position sense on him, he does okay on the right, but does not do okay on the left side. When I asked him to do [id number] on the left side, he does it very slowly and on the right side, he does it normally, and the fact on the left side, he could not even do that in spite of giving him multiple instructions. Same thing with rapid finger tapping or alternate finger tapping. He does look impaired on the left side. He does have a defibrillator. His blood pressure is 136/85, respirations 20, pulse is 96. LABORATORY DATA: Indicates that his PT is trace high at 16.7, INR is 1.5, APTT is 39.1. His GFR is 47 which is somewhat low, but better than it was last August. I had a long talk with the patient and patient's daughters. This patient is competent to make his decision. I discussed with him that it is possible that he is developing seizures from his prior stroke. It is also possible that he has another emboli from his heart. I considered the seizure first because the nurses noticed some seizure and seizure-like activity or at least shaking in Emergency Room. Management was very difficult. Initially, I tried to see if an MRI can be arranged. He has a defibrillator and nurse practitioner told me that she called the [employer] and they told her that his pacemaker and defibrillator are incompatible with MRI. MRI needs to be approved by [employer], but I told them I can get that approved, but I was told that MRI cannot be done. Even if the pacemaker and defibrillator are compatible with MRI, still need to be set up and that typically takes 24-48 hours. An attempt was made, but that was unsuccessful to do the MRI. I very frankly discussed the situation with the patient as well as the patient's daughters. I told them the options include that we just assume that this is [address] [address] CONSULTATION Name: CHARLEY JAUREGUI Room #: 250-P ADM IN M.R.#: [id number] Admission: 03/26/20 Attend Phys: Armando Langford MD Discharge: Date of : 37 Report #: [id number] seizure and treat him for seizure or we try to do the further workup to make sure he does not have another emboli to the brain and taken for thrombectomy. The risks with that is his kidneys can shut down and he can be on dialysis permanently. Both the patient and the patient's daughters emphatically told me that they want to do the CT angio and they are very well aware of the risk that his kidneys may shut down. If that happens, he will need dialysis either short-term or long-term or indefinitely. The patient wants to proceed with CT angio and perfusion and the daughters want to do that. That was arranged and that will be done tonight. If an embolus is found, he will be transferred to another facility for embolectomy assuming perfusion shows penumbra. If not, he will be admitted. I already gave him a loading dose of Keppra. He needs to be monitored closely and needs to be sent to ICU, especially for the possibility of seizure. We will get an EEG done. I talked to Daniella Burrissmith and she is going to order fluids for this patient depending upon how much he can tolerate, but she said she is going to give fluids to him depending upon how much he can tolerate because of his congestive heart failure. I discussed those complications with the patient's family also. All the options were discussed with the patient as well as the family. Unfortunately, there is no good option in this patient. All the options are fraught with possible multiple complications and the family understand it and that is the option they want. To be on safe side and to get another opinion, I called the cheese sprayer on-call in this patient and he said it is okay to proceed with CT angio and perfusion in this patient with creatinine of 1.7. Before me calling the cheese sprayer, the nurses in the Emergency Room has called the radiologist and he also said that this dye can be given with this creatinine and GFR. In spite of that, I still explained to the patient and the family that the complication of renal failure can occur and they understood that very well and they wanted to proceed with CT angio and perfusion and further management will depend upon the outcome of those testing. I spent around 2 hours of time taking care of this patient today since I got the call and majority of the time was spent counseling and coordinating the patient's care as summarized above. Thank you very much for this referral and if you have any question, please feel free to contact me. <ELECTRONICALLY SIGNED> By: Josemanuel Kuhn MD 03/28/20 1836 0125 Josemanuel Kuhn MD /nt
--- NOTE | 2020-03-28 20:49 | NUR ---
PT SEDATED NOW BUT NOT MOVING TOWARDS GOALS. FAMILY UPDATED. SITTING IN CHAIR CALM RIGHT BUT MOVING ALL EXTREMITIES.
--- NOTE | 2020-03-28 21:48 | NUR ---
1130-PT VERY BELLIGERANT EARLIER,YELLING AT OT/PT & NURSES.PT ALL OVER THE BED,LYING SIDEWAYS & PRONING SELF.ENTANGLES IN ALL THE CABLES THEN ANGRY HE IS CAUGHT UP.NOT ABLE TO REDIRECT.DAUGHTER IN.--VW ~1630-IN & OUT OF ROOM FREQ TO ASSIST W PT. PT VERY COMBATIVE & HOSTILE AT TIMES.DOES NOT REDIRECT.DOES SEEM TO DO BETTER IN CHAIR.HAS SLEPT VERY LITTLE.--VW
[2020-03-29] VITALS (22 sets, daily range): BP systolic 101–132; BP diastolic 55–88
--- NOTE | 2020-03-29 11:44 | NUR ---
chart review. noted he been yelling, angry and confused. cm received phone call from daughter sherrie [phone], she wanted to know what is going on with her dad medically? " one nurse say something then another says something differ just want to know what is going on with his care?"/sherrie. active listen, offered to pass on information to ICU charge nurse and MD to call her rt medical questions" thank you"/daughter. Noted she was talking in a loud voice during phone call. no anticipated dc over the weekend.
[2020-03-29 14:56] LABS: URINE BILIRUBIN NEGATIVE (Negative); URINE BLOOD 1+ (Negative); URINE CLARITY CLEAR; URINE COLOR YELLOW; URINE GLUCOSE-RANDOM* NEGATIVE (Negative); URINE KETONES NEGATIVE (Negative); URINE LEUKOCYTES-REFLEX NEGATIVE (Negative); URINE NITRITE-REFLEX NEGATIVE (Negative); URINE PROTEIN (DIPSTICK) NEGATIVE (Negative); URINE SPECIFIC GRAVITY 1.025 (1.005-1.035)
[2020-03-29 15:07] LABS: BACTERIA-REFLEX None Seen /HPF (None Seen); CASTS None Seen /LPF (None Seen); MUCUS 0-3 Light strn/LPF (None Seen); SQUAMOUS None Seen /LPF (0-3); URINE RBC 0-2 Rare /HPF (0-2); URINE WBC-REFLEX 0-5 Rare /HPF (0-5)
[2020-03-29 15:08] LABS: CRYSTALS None Seen /LPF (None Seen)
--- NOTE | 2020-03-29 15:47 | NUR ---
PATIENT IS A CANDIDATE FOR ACUTE REHAB STAY. AUTHORIZATION REQUEST MADE TO PATIENT'S INSURANCE AND CLINICAL INFORMATION WAS FAXED. WILL AWAIT DECISION. ANTICIPATE RESPONSE ON 04/01/20. THANK YOU FOR THIS REFERRAL.
--- NOTE | 2020-03-29 19:26 | NUR ---
RN ASSUMED PT'S CARE AT 0700AM, PT IS A&OX2 ( PERSON AND PLACE), PT IS CONFUSED AT TIME, PT 'S VS ARE STABLE AT DAY SHIFT, PT GETS UP TO CHAIR AND BSC WITH ASSIST , PT HAS WORKED WITH PT/OT, PT DENIES PAIN AND SOB, PT 'S L SIDE STILL Has weakness.
--- NOTE | 2020-03-29 21:12 | NUR ---
PATIENT MORE ALERT AND KEENLY RESPONSIVE TONIGHT,ORIENTED TO PERSON, PLACE, AND TIME. VSS, AFEBRILE. DENIES PAIN, B/S +VEX4 QUADS, ABDOMEN SOFT AND NTTP. L/S CLEAR/DIM. ABLE TO USE CALL LIGHT SYSTEM APPROPRIATELY AND USING URINAL WITH ASSIST. PATIENT ANSWERING QUESTIONS AND PERFORMING TASKS CORRECTLY. NIH STROKE SCALE 2. REPORT CALLED TO [address] [place] [address], PATIENT TRANSFERING TO .453, FAMILY NOTIFIED AND ALL QUESTIONS ANSWERED.
--- NOTE | 2020-03-30 02:31 | NUR ---
PT TRANSFER FROM ICU AT 2200 AND WAS ADMITTED WITH AMS AND ATAXIA.PT IS A/O X3.PT IS FORGETFUL AND CONFUSE.PT BECAME AGITATED AND WANTED TO LEAVE AND GO HOME.PT WAS REDIRECTED AND WAS ABLE TO CALM HIM DOWN VERBALLY.DAUGHTER CALLED AND WAS UPDATED ON PT CONDITION.PT IS UP WITH X1 ASSIST AND UNSTEADY ON GAIT.PT IS CONTINENET AND INCONTINENT AND USE A URINAL.PT IS ON TELE AND HAS A PACEMAKER.PT IS ACCUCHECK ACHS WILL CONTINUE TO MONITOR PER POC
[2020-03-30 07:54] VITALS: BP 135/83
--- NOTE | 2020-03-30 11:55 | NUR ---
Patient was pleasant at beginning of shift. Wanted to go home. Was informed of decision to be transfered to [facility] for rehabilitation. Patient denied giving permission for rehab. Daughter was contacted, wanting patient to remain for rehabilitation. Patient became increasingly frustrated with conversation. Dr. Langford was notified, spoke with daughter to address issue directly with patient. Patient does not remember speaking with Dr. Langford. Will continue to monitor.
--- NOTE | 2020-03-30 14:29 | NUR ---
PT RECEIVED INSURANCE AUTHORIZATION. PT NEEDS COVID-19 TEST PRIOR TO ADMIT. FURTHER COMPLICATING ADMISSION IS PT'S RECENT REFUSAL TO DISCHARGE TO [facility] AND STATES HE WANTS TO GO HOME. SPOKE WITH DR ADRIAN AND PLAN IS FOR Yanira GALLAGHER AND ANDRES TO SEE PATIEN WEDNESDAY TO EVALUATE ABILITY TO MAKE DECISIONS OR IF DPOA IS NEEDED. WE WILL CONTINUE TO FOLLOW TO ASSIST WITH APPROPRIATE DISCHARGE PLANS.
[2020-03-30 17:33] VITALS: BP 138/76
[2020-03-30 19:36] VITALS: BP 122/76
--- NOTE | 2020-03-31 05:41 | NUR ---
Assumed pt care at 1900. A/OX3-4,able to make needs known. Denies pain on assessment, VSS.Up with AX1 with GB.Continent of B&B,voiding per urinal at NOC. Covid test back this am and negative. Dtr Ekaterina called at HS with questions regarding pt dc to [facility], indicated pt is now acceptable to [facility]. Pt has a pending psych/psychological eval to determine decision making abilities,stated she'll visit today. Will relay information to oncoming nurse. Fall precautions in plac,calls approp for help.
[2020-03-31 08:30] VITALS: BP 128/83
[2020-03-31] MEDS ORDERED: KEPPRA 500 MG500 M1 PO (10:08)
[2020-03-31] MEDS ORDERED: COREG6.25 MG PO (10:08)
[2020-03-31] MEDS ORDERED: LIPITOR40 MG PO (10:08)
[2020-03-31] MEDS ORDERED: VITAMIN B-12500 MCG PO (10:09)
[2020-03-31] MEDS ORDERED: FOLIC ACID1 MG PO (10:09)
[2020-03-31 11:44] LABS: HEMATOCRIT 39.2 % (42.0-52.0); HEMOGLOBIN 12.8 gm/dL (14.0-18.0); MCH 31.8 pg (26.0-34.0); MCHC 32.8 g/dL (28.0-37.0); MCV 96.9 fL (80.0-100.0); RBC 4.04 mil/uL (4.50-6.00); RDW 14.7 % (10.5-14.5); WBC 3.7 thou/uL (4.0-11.0)
[2020-03-31 11:58] LABS: ALBUMIN 3.4 g/dL (3.4-5.0); CALCIUM 8.8 mg/dL (8.5-10.1); CREATININE 1.7 mg/dL (0.7-1.3); POTASSIUM 4.1 mmol/L (3.5-5.1); TOTAL BILIRUBIN 0.9 mg/dL (0.2-1.0); TOTAL PROTEIN 6.9 g/dL (6.4-8.2)
--- NOTE | 2020-03-31 13:35 | NUR ---
Patient stated he was ready to go to rehab, but still would prefer to go home. Patient VSS with patient c/o pain. Patient did ambulate with walker to and from restroom with good endurance. Patient later wanted to walk around the room without the use of the walker. Accompanied using gait belt. Patient was stable with some dragging of the left foot. Order was placed for discharge to rehab on [facility]. Report given over patient to Lori prior to discharge via wheelchair with daughter and CQ DEVELOPER. All personaly belongins given to patient.
--- NOTE | 2020-04-01 10:45 | EEG ---
[facility] [place] [address] ELECTROENCEPHALOGRAM Name: CHARLEY JAUREGUI Room #: 453-P [facility] IN M.R.#: [id number] Admission: 03/26/20 Attend Phys: Armando Langford MD Discharge: 03/31/20 Date of : 39 Report #: [id number] THIS REPORT FOR: //name// This patient's EEG was done because the patient is either having recurrent TIA or seizure. EEG was done by placing the electrodes by standard 10-20 system of electrode placement. Both referential and sequential montages were used for recording. Background activity in this patient's EEG is about 8 Hz and 30 microvolt. The patient went to sleep and that is associated with bilateral slowing and vertex sharp waves. Photic stimulation is unremarkable. Throughout the record, no active epileptiform activity was noticed. IMPRESSION: This patient's EEG is intermixed with moderate amount of theta range slowing. However, no active epileptiform activity was noticed. Thank you very much for this referral. <ELECTRONICALLY SIGNED> By: Josemanuel Kuhn MD 04/01/20 1045 [id number] Josemanuel Kuhn MD /nt
[2020-04-01 20:06] LABS: SYPHILIS AB Non Reactive (Non Reactive)
[2020-04-04 18:06] LABS: ANA INTERPRETATION Negative (Negative)
[2020-04-08] MEDS ORDERED: KLOR-CON M2020 MEQ PO (15:06)
== END 2020-03-31 13:40 | DRG 64 ==
LOC: ER 20:46 → EROBS 22:01 → ICU 22:01 → 4W 03-29 21:58
PROVIDERS: Emergency Medicine; Internal Medicine Nephrology; Nurse Practitioner Family; Psychiatry & Neurology Neuromuscular Medicine; ADMIT Internal Medicine; ATTEND Internal Medicine
DX: I63.9 Cerebral infarction, unspecified (principal); I50.23 Acute on chronic systolic (congestive) heart failure; I13.0 Hypertensive heart and chronic kidney disease with heart failure and stage 1 through stage 4 chronic kidney disease, or unspecified chronic kidney disease; G81.94 Hemiplegia, unspecified affecting left nondominant side; R44.3 Hallucinations, unspecified; R56.9 Unspecified convulsions; I48.0 Paroxysmal atrial fibrillation; E78.5 Hyperlipidemia, unspecified; R27.0 Ataxia, unspecified; I25.5 Ischemic cardiomyopathy; N40.0 Benign prostatic hyperplasia without lower urinary tract symptoms; N18.32 Chronic kidney disease, stage 3b; I25.10 Atherosclerotic heart disease of native coronary artery without angina pectoris; E11.22 Type 2 diabetes mellitus with diabetic chronic kidney disease; Z20.822 Contact with and (suspected) exposure to COVID-19; Z95.810 Presence of automatic (implantable) cardiac defibrillator; I25.2 Old myocardial infarction; Z79.01 Long term (current) use of anticoagulants; Z79.899 Other long term (current) drug therapy; Z88.1 Allergy status to other antibiotic agents
CPT/HCPCS: 10045; 10203

== ENCOUNTER 2020-03-31 10:48 | Inpatient (IN) | payer OTHER ==
[~2020-03-31] VITALS: Ht 160 cm; Wt 56.8 kg
--- NOTE | ~2020-03-31 | PLAN ---
[facility] [place] [address] REHAB UNIT PLAN OF CARE Name: CHARLEY JAUREGUI Room #: 514-P ADM IN M.R.#: [id number] Admission: 03/31/20 Attend Phys: Marco Hensley MD Discharge: Date of : 39 Report #: [id number] THIS REPORT FOR: cc: Yusuf Samaniego Ronald D. DO Smithson, David G. MD ~ DATE OF SERVICE: 04/03/2020 PROGRESS NOTE AND OVERALL PLAN OF CARE SUBJECTIVE: Henry was seen earlier today. Please see my progress note. PLAN: The overall plan of care is based on the preadmission screen and information garnered from therapy assessments. 1. Estimated length of stay is the plan for discharge on Wednesday at the end of this week. 2. Medical prognosis is reasonably good. 3. Anticipated interventions includes the interdisciplinary acute inpatient rehabilitation program. 4. Anticipated functional outcomes would be for the patient to become modified independent, ambulating without gait aids and to further improve his left sided visual perceptual abilities as well as his safety and judgment. 5. Discharge destination is back to the home setting with multiple family members that will be there and can assist him. 6. Expected therapy by discipline includes PT, OT and speech 1 hour per day each five days a week throughout the duration of the acute inpatient rehabilitation stay. ADDENDUM: The patient's prognosis for significant practical improvement within a reasonable period of time appears good. Given the patient's complex medical condition and risk of further medical complication, rehabilitation services could not be safely provided at a lower level of care such as a [facility] facility. By: [id number] Marco Hensley MD /nt
--- NOTE | ~2020-03-31 | H ---
[facility] [place] [address] HISTORY AND PHYSICAL Name: CHARLEY JAUREGUI Room #: 514-P ADM IN M.R.#: [id number] Admission: 03/31/20 Attend Phys: Marco Hensley MD Discharge: Date of : 39 Report #: [id number] THIS REPORT FOR: cc: Yusuf Samaniego Ronald D. DO Smithson, David G. MD ~ DATE OF SERVICE: 03/31/2020 HISTORY OF PRESENT ILLNESS: The patient is an 84-year-old -[place] male who was originally admitted on 03/27/2020 with mental status changes driving erratically veering to the left. CT scan showed an old right parietal infarct. He was not a candidate for TPA. He was noted to have left-sided neglect and left-sided hemisensory deficits. He had a seizure, new onset. In the Emergency Room he was given Keppra. He was seen by Neurology. He is not a candidate for an MRI as he has a pacemaker, which apparently is not compatible. He is noted to have chronic kidney disease. He is felt to have a clinical right brain CVA with left-sided neglect and left hemisensory deficits and left-sided weakness. He had some problems with confusion, disorientation with agitation use of lap belt and Haldol. He has improved from that point, cooperative, following commands, agrees to rehabilitation and was admitted for inpatient rehabilitation. Neurology's assessment is recurrent cerebrovascular accident versus seizure secondary to prior CVA. PAST MEDICAL HISTORY: Prior medical history includes hypertension, elevated lipids, diabetes mellitus type 2, CHF, cardiomyopathy, coronary artery disease with prior coronary artery bypass grafting, cardiac pacemaker with AICD, history of atrial fibrillation. MEDICATIONS: Please see the full medication listing. ALLERGIES: No known drug allergies. SOCIAL HISTORY: He lives with 2 daughters and a niece. Six steps in and one daughter works. He did not utilize gait aids. He was driving as noted above. He lives in a house. REVIEW OF SYSTEMS: No current complaints of chest pain, shortness of breath or abdominal discomfort. PHYSICAL EXAMINATION: GENERAL: An 84-year-old -[place] male in no obvious distress. VITAL SIGNS: Temperature 97.9, pulse 87, respirations 18, blood pressure 126/75. The patient is alert. HEENT: Appeared to be benign. He has a mildly depressed left nasolabial fold. Facies otherwise appeared symmetric. [facility] [address] [place] [address] HISTORY AND PHYSICAL Name: CHARLEY JAUREGUI Room #: 514-P [facility] IN ..#: [id number] Admission: 03/31/20 Attend Phys: Marco Hensley MD Discharge: Date of : 37 Report #: [id number] CHEST: Sounded clear to auscultation. CARDIOVASCULAR: Regular rate and rhythm. ABDOMEN: Bowel sounds positive, nontender. GENITOURINARY AND RECTAL: Deferred. EXTREMITIES: He has better attention of that left visual field though when I saw him in consultation with some mild neglect to confrontation. Some left-sided weakness, upper and lower extremity more of a grade 4- to 4/5 with some decreased coordination. Some mild decreased sensation to light touch left upper and left lower extremity. DTRs were 1+. No clonus at the ankle. He does have some left omer-inattention. Functionally, he has been standby to min assist sit to stand and is ambulated a short distance min assist without an assistive device. In occupational therapy, he does have the need for mod assist coming to stand from a low surface, mod assist for bathing is noted. In speech therapy, he has been noted to have moderate cognitive and memory deficits. His last swallow study at bedside recommends a mechanical soft with all liquids. ASSESSMENT: An 84-year-old -[place] male with the following problem list: 1. Clinical cerebrovascular accident, right hemispheric with left visual field neglect, left hemisensory deficit, left-sided weakness. 2. New onset seizure. 3. History of atrial fibrillation. 4. Diabetes mellitus type 2. 5. Coronary artery disease with history of coronary artery bypass grafting. 6. Congestive heart failure with cardiomyopathy. 7. Hypertension. PLAN: The patient has been admitted for acute in-hospital inpatient rehabilitation. Please see the patient's previous and current functional status. As far as risk of complications, this includes the above noted comorbidities. Initial plan of care involves the interdisciplinary acute inpatient rehabilitation program with goal of maximizing his functional independence, so he can hopefully return back to the home setting. Prognosis is reasonably good with estimated length of stay probably at least 10-14 days or pending progress. His diagnosis is appropriate for acute in-hospital inpatient rehabilitation. He meets the medical necessity criteria and we will have the information systems consultant physicians continue to follow. He does have the tolerance for therapies and has appropriate discharge goals back to the home setting. By: [id number] Marco Hensley MD /RIC
[~2020-03-31 10:48] MED LIST changes: +COREG6.25 MG PO; +FOLIC ACID1 MG PO; +KEPPRA 500 MG500 M1 PO; +LIPITOR40 MG PO; +PIOGLITAZONE15 MG; +VITAMIN B-12500 MCG PO
[2020-03-31 14:15] VITALS: BP 120/70
--- NOTE | 2020-03-31 15:25 | NUR ---
[age] YEAR OLD MALE ADMITTED TO 5 ROOM 514 THIS AFTERNOON. PT ALERT AND ORIENTED TIMES FOUR, WITH PERIODS OF CONFUSION. VSS. PT DENIES PAIN/SOA AT THIS TIME. PT UP WITH ASSIST OF ONE TO RESTROOM. PT DAUGHTER AT BEDSIDE DURNING ADMISSION ASSESSMENT. WILL CONTINUE TO MONITOR.
[2020-03-31 19:16] VITALS: BP 126/75
--- NOTE | 2020-04-01 02:16 | NUR ---
SLIDING SCALE INSULIN RESTARTED FOR HS BLOOD SUGAR OF 235. PATIENT STATES HE USUALLY JUST TAKES PILLS FOR HIS DIABETES AND DID NOT REMEMBER TAKING INSULIN DURING ACUTE STAY. UP UNTIL 2229 WATCHING WESTERNS IS HIS HABIT, LOOKING FORWARD TO GETTING STRONGER WITH THERAPY AND HOPING TO GO HOME SOON. UP IN ROOM WITH SBA AND GAIT BELT.
[2020-04-01 05:28] LABS: HEMATOCRIT 36.3 % (42.0-52.0); HEMOGLOBIN 12.3 gm/dL (14.0-18.0); MCH 32.2 pg (26.0-34.0); MCHC 33.9 g/dL (28.0-37.0); MCV 94.8 fL (80.0-100.0); RBC 3.83 mil/uL (4.50-6.00); RDW 14.6 % (10.5-14.5); WBC 4.9 thou/uL (4.0-11.0)
[2020-04-01 05:46] LABS: CALCIUM 8.6 mg/dL (8.5-10.1); CREATININE 1.6 mg/dL (0.7-1.3); POTASSIUM 3.9 mmol/L (3.5-5.1)
--- NOTE | 2020-04-01 09:52 | NUR ---
chart review. cm visited with pt at bedside, cm cont to wear face mask and shield during visit. intro to cm, team meeting and dcp. "ok thanks"/jaxson noted he lives with 2 daughter sherrie 1st contact [phone], other daughter sandra. he was still driving. 10 steps up to house. no steps inside, has grab bars. no hh or rehab in past. will cont following as needed for dc needs.
[2020-04-01 12:53] VITALS: BP 130/70
[2020-04-01 19:26] VITALS: BP 122/74
--- NOTE | 2020-04-02 01:39 | NUR ---
assumed care approx 1900 evening 04/01. pt sitting up in recliner at change of shift visiting with daughter at bedside. pt pleasant and cooperative. pt took hs meds with water tolerating well. pt assisted with gown and into bed at hs. pt appears to be sleeping soundly. bed alarm on and call light in reach. will continue to monitor.
--- NOTE | 2020-04-02 07:42 | NUR ---
ASSUMED CARE AT 0700. PATIENT IS IMPATIENT AT TIMES. PATIENT IS ALERT AND ORIENTED. PATIENT HAS LEFT SIDED WEAKNESS R/T CVA. PATIENT IS FORGETFUL. UP IN THE CHAIR WITH P.T. PATIENT LUNGS ARE CLEAR AND DEMINISHED. ABD IS SOFT WITH BSX4. PATIENT HAS VOIDED TERRENCE COLORED URINE. FALL AND SAFETY PROTOCOLS IN PLACE. DENIES PAIN AT THIS TIME. CONTINUES TO PROGRESS SLOWLY TOWARDS D/C GOALS. WILL CONTINUE TO MONITER.
--- NOTE | 2020-04-02 13:21 | NUR ---
team meeting, reccomendaton: poor insight. diff follow direction, right brain injury. needs pills and bills. mech soft with chopped meats and thin liquids. dc [facility] ( pt, ot,nursing, st , sw). no dme, then move to outpt therpy after home health.
[2020-04-02 14:47] VITALS: BP 135/76
--- NOTE | 2020-04-02 15:16 | NUR ---
FAXED REFERRAL TO [facility] HH SPOKE WITH MAYA IN INTAKE THEY CAN ACCEPT AT IN 04/05.
[2020-04-02 19:11] VITALS: BP 119/74
[2020-04-03 05:52] LABS: CALCIUM 8.7 mg/dL (8.5-10.1); CREATININE 1.9 mg/dL (0.7-1.3); POTASSIUM 4.4 mmol/L (3.5-5.1)
[2020-04-03 07:54] VITALS: BP 129/80
--- NOTE | 2020-04-03 08:08 | NUR ---
ASSUMED CARE AT 0700. PATIENT IS ALERT AND ORIENTED X4. PATIENT HAS LEFT SIDED WEAKNESS. LUNGS ARE CLEAR. ABD IS SOFT WITH BSX4. HAD BM TODAY. UP TO THE BATHROOM TO VOID TERRENCE COLORED URINE. UP IN THE CHAIR FOR BREAKFAST. FALL AND SAFETY PROTOCOLS IN PLACE. DENIES PAIN. CONTINUES TO PROGRESS SLOWLY TOWARDS D/C GOALS. WILL CONTINUE TO MONITER.
[2020-04-03 10:47] LABS: HEMATOCRIT 36.9 % (42.0-52.0); HEMOGLOBIN 12.3 gm/dL (14.0-18.0); MCH 32.1 pg (26.0-34.0); MCHC 33.2 g/dL (28.0-37.0); MCV 96.7 fL (80.0-100.0); RBC 3.82 mil/uL (4.50-6.00); RDW 14.8 % (10.5-14.5); WBC 3.7 thou/uL (4.0-11.0)
[2020-04-03 20:00] VITALS: BP 136/83
--- NOTE | 2020-04-04 02:07 | NUR ---
ASSESSMENT: PT REMAIN ALERT AND ORIENT TIMES THREE, FORGETFUL AT TIMES. PT WAS UP IN THE CHAIR UNTIL 2100; UP WITH SBA TO BED. DENIE PAIN, SOB AND N/V. VSS, AFEBRILE. GOOD PROGRESS TOWARDS DC GOALS. WILL CONTINUE TO MONITOR.
[2020-04-04 07:30] VITALS: BP 146/75
[2020-04-04 08:05] VITALS: BP 146/75
--- NOTE | 2020-04-04 11:09 | NUR ---
PT CARE ASSUMED AT 0700. ASSESSMENTS CHARTED. MEDICATIONS CHARTED. PT IN PLEASANT MOOD, TALKATIVE. PT HAD GOOD BREAKFAST APPETITE. PT TAKES PILLS WHOLE WITH WATER. PLANNED DISCHARGE WEDNESDAY.
--- NOTE | 2020-04-04 15:39 | NUR ---
cm cont to received phone call from daughter sherrie and no message to return call. cm spoke with sherrie and sandra via phone call. Daughter sherrie will be the one coming to hospital to pick him up tomorrow. " 11-noon will be there to get him. when will home health be there?"/sherrie. re-education that [facility] will call her and set up appointments to come to he home. (pt, ot, st, nurse and sw). cm passed on information to unite supervisor metal furniture fabrication to get visitor changed for day of dc and to beside nurse to make sure dc is ready.
[2020-04-04 20:10] VITALS: BP 122/71
--- NOTE | 2020-04-05 07:08 | NUR ---
PT MAKING PROGRESS TOWARDS GOALS. PT UP SBA ONLY. GAIT STABLE, DENIES ANY DIZZINESS. PT ANXIOUSLY AWAITING DISCHARGE TODAY.
[2020-04-05 08:00] VITALS: BP 138/73
[2020-04-05] MEDS ORDERED: KEPPRA 500 MG500 M1 PO (08:40)
[2020-04-05] MEDS ORDERED: VITAMIN D325 MC1 PO (08:40)
[2020-04-05] MEDS ORDERED: VITAMIN B-12500 MCG PO (08:40)
[2020-04-05] MEDS ORDERED: GLUCOTROL5 MG PO (08:40)
[2020-04-05] MEDS ORDERED: FOLIC ACID1 MG PO (08:40)
[2020-04-05 08:52] VITALS: BP 146/75
--- NOTE | 2020-04-05 11:14 | NUR ---
ASSESSED AT START OF SHIFT. PT ANTICIPATING D/C AT NOON. MORNING MEDS GIVEN AND PT LEN IT WELL. REPORT GIVEN TO OTHER RN.
--- NOTE | 2020-04-05 13:00 | NUR ---
DISCHARGE INSTRUCTIONS REVIEWED PER RN AND ITALO NEFF, TELEGRAPHIC TYPEWRITER MECHANIC, AND PT AND HIS DAUGHTER ASKED APPROPRIATE QUESTIONS AND VERBALIZED UNDERSTANDING THROUGH TEACH-BACK METHOD. DC SUMMARY PRINTED, AND UNABLE TO OBTAIN FAX # FOR DR. LAUREANO WALLACE, SO THIS TASK WAS COMMUNICATED TO THE NM TO FOLLOW UP WITH ON WEDNESDAY WHEN THE OFFICE CAN BE CONTACTED, ATTEMPT TO FAX WAS AFTER HOURS. PT WHEELED SELF TO ELEVATORS INDEPENDENTLY, AND TRANSFERRED INTO THE CAR WITHOUT ANY ASSIST FROM THE FRONT DESK MONITOR HER HER REPORT. ALL BELONGINGS SENT HOME WITH PATIENT, AND DAUGHTER DID ONE FINAL SWEEP OF THE ROOM TO ENSURE THAT NOTHING WAS LEFT BEHIND.
--- NOTE | 2020-04-05 17:30 | NUR ---
PT DISCHARGING HOME WITH [facility] FAXED DC ORDERS/SUMMARY SPOKE WITH FIDEL IN INTAKE SHE RECEIVED ORDERS AND WILL ARRANGE VISITS WITH PT.
--- NOTE | 2020-04-05 17:49 | HC ---
[facility] [place] [address] CONSULTATION Name: CHARLEY JAUREGUI Room #: 514-P [facility] IN M.R.#: [id number] Admission: 03/31/20 Attend Phys: Marco Hensley MD Discharge: 04/05/20 Date of : 37 Report #: [id number] THIS REPORT FOR: cc: Yusuf Samaniego Ronald D. DO Deutch, Neal B. PhD ~ DATE OF SERVICE: 04/04/2020 NEUROBEHAVIORAL STATUS EXAMINATION ATTENDING PHYSICIAN: Dr. Marco Hensley COMBAT SYSTEMS ENGINEER: Gautam Preston, PhD CLINICAL PRESENTATION: The patient is an 84-year-old -[place] male that was initially admitted to the hospital on 03/27/2020 with mental status changes. He was reported to have been driving erratically and veering to the left. A CT scan revealed an old right parietal infarction. The patient was noted to have left-sided neglect and left-sided hemisensory deficits. He also had a seizure in the Emergency Room. He has a pacemaker placed and was not considered a candidate for MRI. It was suggested that he had a clinical right brain CVA with left-sided neglect and left hemisensory deficits with left-sided weakness. The patient initially presented with confusion, disorientation and agitation, requiring Haldol and restraint. His prior medical history included hypertension, elevated lipids, diabetes mellitus type 2, congestive heart failure, cardiomyopathy, coronary artery disease with prior coronary artery bypass grafting, cardiac pacemaker with AICD, and history of atrial fibrillation. His assessment on admission to the rehabilitation unit was clinical cerebrovascular accident, right hemispheric, left visual field neglect and left hemisensory deficit with left-sided weakness, new onset seizure, history of atrial fibrillation, diabetes mellitus type 2, coronary artery disease with history of coronary artery bypass grafting, congestive heart failure, cardiomyopathy and hypertension. A complete description of his medical condition and history can be found in his medical record. Neuropsychological consultation was requested to provide assistance in the assessment of cognitive and emotional status and to provide recommendations and services. Prior to this most recent medical event, he was living with both of his daughters. The patient reports having been independent with instrumental activities of daily living including driving. He had 4 children. Two sons about 10-11 years ago. His about 2 years ago. The patient is a high school graduate. 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 [address] [place] [address] CONSULTATION Name: CHARLEY JAUREGUI Room #: 514-P DIS IN M.R.#: [id number] Admission: 03/31/20 Attend Phys: Marco Hensley MD Discharge: 04/05/20 Date of : 39 Report #: [id number] prior to his longterm. There was no prior history of alcohol or drug abuse or prior treatment for depression or anxiety. TECHNIQUES UTILIZED: Clinical interview, review of medical records, staff consultation and behavioral observation, mini mental status exam 2 standard version, clock drawing, verbal fluency assessment, Repeatable Battery for the Assessment of Neuropsychological Status, and family interview - daughter. EXAMINATION FINDINGS: The patient was able to accurately describe events leading to his hospitalization. There is no evidence of thought disorder. He does not report auditory or visual hallucinations. Patient is lacking insight into his deficits. He does not report having any problems with cognitive functioning, mood or behavior. His family reports observing very significant changes in mental status and behavior on the day of his admission. Family attributes changes in his functioning as a result of the stroke and seizure. Performance on the MMSE 2 brief version was extremely low with a raw score of 10/16. He was 3/3 for initial registration, 3/5 for orientation to time, 4/[address] and 0/3 for immediate recall of 3 items after a brief time delay and distraction. Performance on the MMSE 2 standard version was extremely low with a raw score of 18/30. He was 2/5 for serial sevens, 2/2 for naming, 1/1 for repetition, 3/3 for auditory comprehension. He could read and follow a single command and write a sentence. He could not copy a simple geometric design. Performance on verbal fluency assessment reveals extremely low functioning for letter, category and total fluency. Letter and category fluency were extremely low with T scores of 21 and 28. Overall, total fluency was extremely low with a T score of 27. Clock drawing was within normal limits for hand placement. Performance on the RBANS was as follows: ScaleIndex Score Percentile Rank Immediate memory 651 Visual spatial/construction 60, 0.4 Language index score 9227 Auditory attention 9434 Delayed memory 52 .1 Total score 65 [address] [place] [address] CONSULTATION Name: CHARLEY JAUREGUI Room #: 514-P DIS IN M.R.#: [id number] Admission: 03/31/20 Attend Phys: Marco Hensley MD Discharge: 04/05/20 Date of : 37 Report #: [id number] The patient is presenting with severe deficits in immediate and delayed memory. Visual spatial construction was in the severely impaired range. Language including naming was within normal limits. Initial focused attention was satisfactory and within normal limits. However, processing speed and incidental learning involving visual spatial coordination was extremely low. The patient is presenting with deficits in multiple neurocognitive modalities. Severe impairment is suggested in immediate and delayed memory, visual spatial construction, processing speed and incidental learning. Language and initial focused attention are better maintained. DIAGNOSTIC IMPRESSION: Major neurocognitive disorder (dementia) - likely with vascular features and medical etiology, decreased insight - likely in the mild range of severity with [id number] cognitive deficits. RECOMMENDATIONS: The patient requires assistance in medical, financial and nutritional management. Driving should be discontinued. Continue treatment program for neurocognitive disorder is recommended. I have discussed with his family, the importance of supervision and structure for him to maintain safety. A followup neuropsychological evaluation in approximately 3-6 months will help provide a more accurate description of his level of functioning. However, at this time, the extent of his deficits and poor insight places him as a very high safety risk. His family have been informed of his deficits and are in agreement with prohibiting driving and providing recommended supervision. Thank you very much for allowing me to provide the consultation on this patient. <ELECTRONICALLY SIGNED> By: Gautam Preston, PhD 04/05/20 1749 [id number] Gautam Preston, PhD /nt
[2020-04-08] MEDS ORDERED: KLOR-CON M2020 MEQ PO (15:06)
== END 2020-04-05 13:15 | disposition home health service (06) | DRG 56 ==
PROVIDERS: Nurse Practitioner Family; ADMIT Physical Medicine & Rehabilitation; ATTEND Physical Medicine & Rehabilitation
DX: I69.354 Hemiplegia and hemiparesis following cerebral infarction affecting left non-dominant side (principal); I63.9 Cerebral infarction, unspecified; I42.9 Cardiomyopathy, unspecified; N17.9 Acute kidney failure, unspecified; R44.3 Hallucinations, unspecified; I13.0 Hypertensive heart and chronic kidney disease with heart failure and stage 1 through stage 4 chronic kidney disease, or unspecified chronic kidney disease; I50.9 Heart failure, unspecified; I25.10 Atherosclerotic heart disease of native coronary artery without angina pectoris; F01.50 Vascular dementia, unspecified severity, without behavioral disturbance, psychotic disturbance, mood disturbance, and anxiety; R41.0 Disorientation, unspecified; I48.0 Paroxysmal atrial fibrillation; E78.5 Hyperlipidemia, unspecified; E55.9 Vitamin D deficiency, unspecified; N18.9 Chronic kidney disease, unspecified; E53.8 Deficiency of other specified B group vitamins; E11.22 Type 2 diabetes mellitus with diabetic chronic kidney disease; N40.0 Benign prostatic hyperplasia without lower urinary tract symptoms; D69.6 Thrombocytopenia, unspecified; R56.9 Unspecified convulsions; R45.1 Restlessness and agitation; Z95.1 Presence of aortocoronary bypass graft; Z95.0 Presence of cardiac pacemaker; Z88.8 Allergy status to other drugs, medicaments and biological substances; Z79.899 Other long term (current) drug therapy; R53.81 Other malaise
CPT/HCPCS: 10112